=== PATIENT | male | born 1960 | race Caucasian/White ===

== ENCOUNTER 2024-07-21 11:23 | Emergency (ER) | payer MEDICARE, MEDICAID, SELFPAY ==
[2024-07-21 11:30] VITALS: BP 157/67; PULSE 82; TEMP 36.6; O2SAT 99; BMI 23.3
--- NOTE | 2024-07-21 11:43 | CT_ITS ---
[address] [address] Patient Name: DANIELE SOTO MRN: [id number] date: 1960 Sex: M Assigned Patient Location: ER Current Patient Location: .[facility] Accession/Order Number: [id number] Exam Date: 07/21/2024 12:04 Report Date: 07/21/2024 12:38 At the request of: DANIELE Pierce ANA MARÍASHERRIE Procedure: CT cervical spine wo con EXAMINATION: CT cervical spine wo con HISTORY: Fall COMPARISON: No relevant comparison available. TECHNIQUE: Axial, Coronal, and Sagittal images were created without IV contrast. Dose reduction techniques were achieved by using automated exposure control and/or adjustment of mA and/or kV according to patient size and/or use of iterative reconstruction technique. FINDINGS: VERTEBRAL BODIES: Reversal normal lordotic curvature with posterior apex at C4-5. Anterior listhesis of C4 on 5, 4 mm without disruption of the posterior elements. Mild anterior wedging of C5 and slight height reduction of C6. FACET JOINTS: Moderate-marked degenerative facet arthropathy C2-3 and C4-5. No disruption or abnormal widening. Osseous fusion of posterior elements of C3-4 which is likely developmental. DISCS: Moderate-marked narrowing C3-4. Moderate narrowing C5 and C6, C6-7, C7-T1. CENTRAL CANAL: Moderate narrowing C4-5. Mild narrowing C5-6, C6-7. PARASPINAL AREA: No visible mass. CT/CT cervical spine wo con IMPRESSION: 1. Moderate marked degenerative changes of cervical spine suspected to be chronic. 2. No convincing acute abnormality. No prior studies for comparison. Electronically authenticated by: ERIC QUINTERO Date: 07/21/2024 12:38
--- NOTE | 2024-07-21 11:43 | CT_ITS ---
The [address] [address] Patient Name: DANIELE SOTO MRN: [id number] date: 1960 Sex: M Assigned Patient Location: ER Current Patient Location: ED.[facility] Accession/Order Number: [id number] Exam Date: 07/21/2024 12:04 Report Date: 07/21/2024 12:25 At the request of: DANIELE Pierce AYLEEN Procedure: CT head/brain wo con EXAM: CT head/brain wo con HISTORY: Fall COMPARISON: None. TECHNIQUE: Multiple thin computed tomograms of the head were obtained, with sagittal and coronal reconstructions. Radiation reduction technique and algorithms were utilized during the study. FINDINGS: The ventricles are not enlarged, the lateral ventricles are symmetric and the third ventricles in the midline. The sylvian fissures and cortical sulci are unremarkable. There is no evidence of an intracranial hemorrhage, mass lesion or apparent acute infarct. No abnormality is seen in the deep white matter. Fluid collections are seen in the posterior aspect of the posterior fossa, most likely due to one or more arachnoid cyst. The cerebellum and visualized brainstem are otherwise intact. The paranasal sinuses are clear as visualized. The middle ears are aerated. The mastoid sinuses are clear. There is no apparent acute skull fracture. CT/CT head/brain wo con IMPRESSION: There is no evidence of an intracranial hemorrhage, mass lesion or apparent acute infarct. Fluid collection in the posterior fossa posteriorly in the midline are probably one or more arachnoid cyst. The paranasal sinuses are clear. There is no apparent acute skull fracture. Comparison with a previous study would be helpful in confirming the chronicity of these findings. Electronically authenticated by: CRISELDA STANLEY Date: 07/21/2024 12:25
--- NOTE | 2024-07-21 11:47 | ED_ITS ---
HPI HPI - General Adult General Chief complaint: Headache Stated complaint: HEAD AND NECK PAIN Time Seen by Provider: 07/21/24 11:42 Source: patient Mode of arrival: walk-in Limitations: no limitations History of Present Illness HPI narrative: First station on this patient was lost in the system. This is a second dictation done on the same day of the encounter. This patient is here complaining of head and neck pain. He fell between 1 and 2 weeks ago off of a chair. His friend drove him to the hospital because he thinks he has been less stable on his feet. He has not been vomiting. He has not been confused or repeating himself he is not hallucinating and there is no other change in his cognition or mental status. Apparently he is on blood thinners. He does not have any paresis paresthesias tingling numbness or loss of coordination or strength in his upper or lower limbs according to the patient himself. There is no other complaints today. Related Data Home Medications ?Medication ?Instructions ?Recorded ?Confirmed aripiprazole 5 mg tablet 5 mg PO DAILY 07/21/24 07/21/24 atorvastatin 40 mg tablet 40 mg PO DAILY 07/21/24 07/21/24 benztropine 0.5 mg tablet 0.5 mg PO BID 07/21/24 07/21/24 buspirone 15 mg tablet mg 07/21/24 buspirone 30 mg tablet 30 mg PO BID 07/21/24 07/21/24 cetirizine 10 mg tablet 10 mg PO DAILY 07/21/24 07/21/24 clopidogrel 75 mg tablet 75 mg PO DAILY 07/21/24 07/21/24 famotidine 40 mg tablet 40 mg PO DAILY 07/21/24 07/21/24 gabapentin 400 mg capsule 800 mg PO TID 07/21/24 07/21/24 hydroxyzine pamoate 25 mg capsule 25 mg PO Q8H PRN anxiety 07/21/24 07/21/24 lamotrigine 200 mg tablet 200 mg PO BID 07/21/24 07/21/24 losartan 25 mg tablet 25 mg PO DAILY 07/21/24 07/21/24 nitroglycerin 0.4 mg sublingual 0.4 mg sublingual Q5M PRN chest 07/21/24 07/21/24 tablet pain olanzapine 10 mg tablet mg 07/21/24 olanzapine 20 mg tablet 20 mg PO DAILY 07/21/24 07/21/24 paliperidone palmitate 234 mg/1.5 234 mg IM Q30D 07/21/24 07/21/24 mL intramuscular syringe (Invega Sustenna) pantoprazole 40 mg tablet,delayed 40 mg PO DAILY 07/21/24 07/21/24 release ropinirole 1 mg tablet 1 mg PO DAILY 07/21/24 07/21/24 ubrogepant 100 mg tablet (Ubrelvy) 100 mg PO DAILY PRN headache 07/21/24 07/21/24 Allergies Allergy/AdvReac Type Severity Reaction Status Date / Time aspirin Allergy Hives Verified 07/21/24 11:35 nalbuphine (From Nubain) Allergy Seizure Verified 07/21/24 11:35 Penicillins Allergy Hives Verified 07/21/24 11:35 shellfish derived Allergy Anaphylaxis Verified 07/21/24 11:35 Opioid HPI Opioid Management Most Recent Opioid Data: No Data to Display PFSH PFSH Social History Little interest or pleasure in doing things: not at all Feeling down, depressed, or hopeless: not at all Exam Narrative Exam Narrative: Patient is awake alert oriented x 3 no confusion or evidence of amnesia. His ambulation and gait are normal he is not off balance. Neurological examination shows GCS to be 15. He has mild restriction of motion in his neck but it is nontender. He has outstanding strength in his upper and lower extremities. There is no CSF otorrhea or rhinorrhea. There is no ecchymosis in the calvarium or the back area. His chest abdomen and extremities are asymptomatic and atraumatic. Constitutional Vital Signs, click to edit/add: Last Vital Signs Temp 97.9 F 07/21/24 11:30 Pulse 82 07/21/24 11:30 Resp 18 07/21/24 11:30 BP 157/67 H 07/21/24 11:30 Pulse Ox 99 07/21/24 11:30 O2 Del Method Room Air 07/21/24 11:30 Course Vital Signs Vital signs: Vital Signs Temperature 97.9 F 07/21/24 11:30 Pulse Rate 82 07/21/24 11:30 Respiratory Rate 18 07/21/24 11:30 Blood Pressure 157/67 H 07/21/24 11:30 Pulse Oximetry 99 07/21/24 11:30 Oxygen Delivery Method Room Air 07/21/24 11:30 Temperature 97.9 F 07/21/24 11:30 Pulse Rate 82 07/21/24 11:30 Respiratory Rate 18 07/21/24 11:30 Blood Pressure 157/67 H 07/21/24 11:30 Pulse Oximetry 99 07/21/24 11:30 Oxygen Delivery Method Room Air 07/21/24 11:30 Medical Decision Making MDM Narrative Medical decision making narrative: CT scan without contrast of the brain shows what appears to be fluid from a chronic subarachnoid cyst but no acute findings fractures or hematomas are noted. His cervical spine CT shows degenerative changes but no acute findings. In the absence of any neurological findings I do not believe he needs any further diagnostic workup we will place him on short-term course of Toradol. He is to follow-up with his primary care doctor in the [facility] Discharge Plan Discharge Chief Complaint: Headache Clinical Impression: Cervical sprain Patient Disposition: Home, Self-Care Time of Disposition Decision: 12:46 Prescriptions / Home Meds: No Action aripiprazole 5 mg tablet 5 mg PO DAILY atorvastatin 40 mg tablet 40 mg PO DAILY benztropine 0.5 mg tablet 0.5 mg PO BID buspirone 30 mg tablet 30 mg PO BID buspirone 15 mg tablet cetirizine 10 mg tablet 10 mg PO DAILY clopidogrel 75 mg tablet 75 mg PO DAILY famotidine 40 mg tablet 40 mg PO DAILY gabapentin 400 mg capsule 800 mg PO TID hydroxyzine pamoate 25 mg capsule 25 mg PO Q8H PRN (Reason: anxiety) lamotrigine 200 mg tablet 200 mg PO BID losartan 25 mg tablet 25 mg PO DAILY nitroglycerin 0.4 mg tablet, sublingual 0.4 mg sublingual Q5M PRN (Reason: chest pain) olanzapine 10 mg tablet olanzapine 20 mg tablet 20 mg PO DAILY Rx Instructions: at bedtime Invega Sustenna 234 mg/1.5 mL syringe 234 mg IM Q30D pantoprazole 40 mg tablet,delayed release (DR/EC) 40 mg PO DAILY ropinirole 1 mg tablet 1 mg PO DAILY Ubrelvy 100 mg tablet 100 mg PO DAILY PRN (Reason: headache) Print Language: Albanian Additional Instructions: Toradol/follow-up your primary care doctor to consider physical therapy if you do not improve Referrals: Asuncion Bates, [facility] [Primary Care Provider] - 1 week
--- NOTE | 2024-07-21 11:51 | ED_ITS ---
HPI HPI - Fall General Chief Complaint: Headache Stated Complaint: HEAD AND NECK PAIN Time Seen by Provider: 07/21/24 11:42 Source: patient Mode of arrival: walk-in Limitations: no limitations History of Present Illness HPI Narrative: This patient is here with her friend for evaluation of head and neck pain. He says primarily his mid cervical spine hurts. He is somewhat of a limited his ian but says he did fall down a couple weeks ago. He says it did not really bother him too much but because its persisted discomfort he came into the hospital. He lives in [place], his friend was coming to [place] and decided to bring him to this hospital. His friend says he seems to be just a little bit less steady on his feet than what he was previously but he has not been repeating himself, he has not been confused and has not been lethargic to his knowledge they live near each other in [place]. He is lab. He does not have any vomiting or severe headache. He has no loss of feeling in his extremities. He is on a number of medications as done the record. He has not had craniotomy before and has not had cervical spine surgery before. He has not noticed any weakness of his upper limbs. Related Data Home Medications ?Medication ?Instructions ?Recorded ?Confirmed aripiprazole 5 mg tablet 5 mg PO DAILY 07/21/24 07/21/24 atorvastatin 40 mg tablet 40 mg PO DAILY 07/21/24 07/21/24 benztropine 0.5 mg tablet 0.5 mg PO BID 07/21/24 07/21/24 buspirone 15 mg tablet mg 07/21/24 buspirone 30 mg tablet 30 mg PO BID 07/21/24 07/21/24 cetirizine 10 mg tablet 10 mg PO DAILY 07/21/24 07/21/24 clopidogrel 75 mg tablet 75 mg PO DAILY 07/21/24 07/21/24 famotidine 40 mg tablet 40 mg PO DAILY 07/21/24 07/21/24 gabapentin 400 mg capsule 800 mg PO TID 07/21/24 07/21/24 hydroxyzine pamoate 25 mg capsule 25 mg PO Q8H PRN anxiety 07/21/24 07/21/24 lamotrigine 200 mg tablet 200 mg PO BID 07/21/24 07/21/24 losartan 25 mg tablet 25 mg PO DAILY 07/21/24 07/21/24 nitroglycerin 0.4 mg sublingual 0.4 mg sublingual Q5M PRN chest 07/21/24 07/21/24 tablet pain olanzapine 10 mg tablet mg 07/21/24 olanzapine 20 mg tablet 20 mg PO DAILY 07/21/24 07/21/24 paliperidone palmitate 234 mg/1.5 234 mg IM Q30D 07/21/24 07/21/24 mL intramuscular syringe (Invega Sustenna) pantoprazole 40 mg tablet,delayed 40 mg PO DAILY 07/21/24 07/21/24 release ropinirole 1 mg tablet 1 mg PO DAILY 07/21/24 07/21/24 ubrogepant 100 mg tablet (Ubrelvy) 100 mg PO DAILY PRN headache 07/21/24 07/21/24 Allergies Allergy/AdvReac Type Severity Reaction Status Date / Time aspirin Allergy Hives Verified 07/21/24 11:35 nalbuphine (From Nubain) Allergy Seizure Verified 07/21/24 11:35 Penicillins Allergy Hives Verified 07/21/24 11:35 shellfish derived Allergy Anaphylaxis Verified 07/21/24 11:35 Opioid HPI Opioid Management Most Recent Pain and Opioid Data: No Data to Display [facility] PFS Social History Little interest or pleasure in doing things: not at all Feeling down, depressed, or hopeless: not at all Exam Constitutional Vital Signs, click to edit/add: Last Vital Signs Temp 97.9 F 07/21/24 11:30 Pulse 82 07/21/24 11:30 Resp 18 07/21/24 11:30 BP 157/67 H 07/21/24 11:30 Pulse Ox 99 07/21/24 11:30 O2 Del Method Room Air 07/21/24 11:30 Course Vital Signs Vital signs: Vital Signs Temperature 97.9 F 07/21/24 11:30 Pulse Rate 82 07/21/24 11:30 Respiratory Rate 18 07/21/24 11:30 Blood Pressure 157/67 H 07/21/24 11:30 Pulse Oximetry 99 07/21/24 11:30 Oxygen Delivery Method Room Air 07/21/24 11:30 Temperature 97.9 F 07/21/24 11:30 Pulse Rate 82 07/21/24 11:30 Respiratory Rate 18 07/21/24 11:30 Blood Pressure 157/67 H 07/21/24 11:30 Pulse Oximetry 99 07/21/24 11:30 Oxygen Delivery Method Room Air 07/21/24 11:30 Discharge Plan Discharge Chief Complaint: Headache Prescriptions / Home Meds: No Action aripiprazole 5 mg tablet 5 mg PO DAILY atorvastatin 40 mg tablet 40 mg PO DAILY benztropine 0.5 mg tablet 0.5 mg PO BID buspirone 30 mg tablet 30 mg PO BID buspirone 15 mg tablet cetirizine 10 mg tablet 10 mg PO DAILY clopidogrel 75 mg tablet 75 mg PO DAILY famotidine 40 mg tablet 40 mg PO DAILY gabapentin 400 mg capsule 800 mg PO TID hydroxyzine pamoate 25 mg capsule 25 mg PO Q8H PRN (Reason: anxiety) lamotrigine 200 mg tablet 200 mg PO BID losartan 25 mg tablet 25 mg PO DAILY nitroglycerin 0.4 mg tablet, sublingual 0.4 mg sublingual Q5M PRN (Reason: chest pain) olanzapine 10 mg tablet olanzapine 20 mg tablet 20 mg PO DAILY Rx Instructions: at bedtime Invega Sustenna 234 mg/1.5 mL syringe 234 mg IM Q30D pantoprazole 40 mg tablet,delayed release (DR/EC) 40 mg PO DAILY ropinirole 1 mg tablet 1 mg PO DAILY Ubrelvy 100 mg tablet 100 mg PO DAILY PRN (Reason: headache) Print Language: Syriac
== END 2024-07-21 13:05 | disposition home or self-care (01) ==
PROVIDERS: Emergency Provider Emergency Medicine Emergency Medical Services; PCP Nurse Practitioner Family
DX: S13.9XXA Sprain of joints and ligaments of unspecified parts of neck, initial encounter (principal); W07.XXXA Fall from chair, initial encounter
CPT/HCPCS: 70450; 72125; 99284